=== PATIENT | female | born 1940 | race African-American/Black ===

== ENCOUNTER 2018-07-17 21:55 | Emergency (ER) | payer OTHER ==
[~2018-07-17] VITALS: Ht 154.9 cm; Wt 67.1 kg
[2018-07-17 22:01] VITALS: Ht 154.9 cm; Wt 67.1 kg
[2018-07-17 22:40] LABS: BASOPHIL % 0.5 % (0-2); PLATELET COUNT 231 x10^3mcL (130-400); RED CELL DISTRIBUTION WIDTH 13.2 % (11.5-14.5)
[2018-07-17 22:59] LABS: ALBUMIN 3.6 g/dL (3.4-5.0); ALKALINE PHOSPHATASE 103 U/L (46-116); ALT/SGPT 21 U/L (14-59); AMYLASE 108 U/L (25-115); AST/SGOT 19 U/L (15-37); BILIRUBIN TOTAL 0.4 mg/dL (0.20-1.00); CALCIUM 9.1 mg/dL (8.5-10.1); CARBON DIOXIDE 28.2 mmol/L (21-32); CHLORIDE SERUM 101 mmol/L (98-107); GLUCOSE SERUM 211 mg/dL (74-106); SODIUM SERUM 139 mmol/L (136-145); TOTAL PROTEIN, SERUM 7.7 g/dL (6.4-8.2)
[2018-07-17 23:02] LABS: POTASSIUM SERUM 2.8 mmol/L (3.5-5.1)
[2018-07-18 04:34] VITALS: BP 157/84
== END 2018-07-18 04:34 | disposition home or self-care (01) ==
LOC: ED 21:55
PROVIDERS: Emergency Medicine
DX: T61.8X1A Toxic effect of other seafood, accidental (unintentional), initial encounter (principal); R11.10 Vomiting, unspecified; E87.6 Hypokalemia; E83.42 Hypomagnesemia; J40 Bronchitis, not specified as acute or chronic; I10 Essential (primary) hypertension; E03.9 Hypothyroidism, unspecified; Y92.89 Other specified places as the place of occurrence of the external cause
CPT/HCPCS: 83880; J1200; J2405; J2765; J3475; J3480; J7030; J7040; Q0092